=== PATIENT | male | born 1995 | race Caucasian/White ===

== ENCOUNTER 2023-12-09 20:32 | Emergency (ER) | payer MEDICAID ==
[~2023-12-09] VITALS: Ht 170.2 cm; Wt 79.4 kg
[2023-12-09 20:39] VITALS: BP_SYST 137; PULSE 80; RESP 18; TEMP 97.7; O2SAT 96
[2023-12-09] MEDS ORDERED: PRO40 PO (21:38)
[2023-12-09 21:44] VITALS: BP_SYST 137; PULSE 80; RESP 18; TEMP 97.7; O2SAT 96
== END 2023-12-09 21:44 | disposition home or self-care (01) ==
LOC: SED 20:32
DX: K21.9 Gastro-esophageal reflux disease without esophagitis (principal); Z79.899 Other long term (current) drug therapy
CPT/HCPCS: 93005; 99283